=== PATIENT | male | born 1980 | race Two or more races ===

== ENCOUNTER → 2021-08-28 | Emergency (ER) | payer BC, OTHER ==
[~2021-08-28] VITALS: Ht 177.8 cm; Wt 167.8 kg
[~2021-08-28] MED LIST: HYDR-4902 PO; LOSA-69 PO
[2021-08-28 00:05] VITALS: BP 130/85
== END | disposition left against medical advice (07) ==
LOC: EDBD 00:05 → ER 00:08
DX: M25.562 Pain in left knee (principal); Z53.21 Procedure and treatment not carried out due to patient leaving prior to being seen by health care provider